=== PATIENT | female | born 2000 | race Caucasian/White ===

== ENCOUNTER 2020-03-06 20:38 | Inpatient (IN) | payer OTHER ==
[~2020-03-06] VITALS: Ht 165.1 cm; Wt 69.9 kg
[2020-03-06 20:51] VITALS: BP 121/80
[2020-03-06 21:12] LABS: CALCIUM 9.3 mg/dL (8.5-10.1); CREATININE 1.1 mg/dL (0.6-1.3); POTASSIUM 3.6 mmol/L (3.5-5.1)
[2020-03-06 21:16] LABS: ALBUMIN 4.3 g/dL (3.4-5.0); TOTAL BILIRUBIN 0.2 mg/dL (<0.1-1.0); TOTAL PROTEIN 7.8 g/dL (6.4-8.2)
[2020-03-06 21:28] LABS: ACETAMINOPHEN < 2 ug/mL (10-30); ALCOHOL < 10 mg/dL (<10)
[2020-03-06 21:32] LABS: HEMATOCRIT 41.1 % (37.0-47.0); HEMOGLOBIN 14.2 gm/dL (12.0-15.0); MCH 30.9 pg (26.0-34.0); MCHC 34.4 g/dL (28.0-37.0); MCV 89.9 fL (80.0-100.0); MPV 8.3 fl. (7.2-11.1); RBC 4.58 mil/uL (4.20-5.00); RDW-CV 13.2 % (10.5-14.5); WBC 14.7 thou/uL (4.0-11.0)
[2020-03-06 22:26] LABS: BE -8.5 mmol/L (-2 to +3); pH 7.453 (7.340-7.450)
[2020-03-06 22:28] LABS: PCO2 18.5 mmHg (35.0-45.0); PO2 131.7 mmHg (75.0-100.0)
--- NOTE | 2020-03-06 22:48 | NUR ---
POISON CONTROL CALLED, DR FOSTER UPDATED
[2020-03-06 23:23] LABS: URINE BILIRUBIN NEGATIVE (Negative); URINE BLOOD 2+ (Negative); URINE CLARITY CLEAR; URINE COLOR STRAW; URINE GLUCOSE-RANDOM NEGATIVE (Negative); URINE KETONES 1+ (Negative); URINE LEUKOCYTES NEGATIVE (Negative); URINE NITRITE NEGATIVE (Negative); URINE PROTEIN NEGATIVE (Negative); URINE SPECIFIC GRAVITY 1.025 (1.005-1.030); URINE UROBILINOGEN 0.2 E.U./dl (0.2-1.0)
[2020-03-06 23:42] LABS: INR 1.1; MAGNESIUM 2.1 mg/dL (1.8-2.4); PROTIME 11.6 Seconds (9.20-11.50)
[2020-03-07] VITALS (30 sets, daily range): BP systolic 86–117; BP diastolic 36–75
[2020-03-07 00:01] LABS: AMP/METHAMP Negative (Negative); BARBITURATES Negative (Negative); BENZODIAZEPINES Negative (Negative); COCAINE Negative (Negative); METHADONE Negative (Negative); OPIATES Negative (Negative); PCP Negative (Negative); THC Negative (Negative)
[2020-03-07 00:12] LABS: CASTS None Seen /LPF (None Seen); SQUAMOUS 4-10 Moderate /LPF (0-3)
[2020-03-07 00:13] LABS: BACTERIA 1-9 Few /HPF (None Seen); CRYSTALS None Seen /LPF (None Seen); URINE RBC 3-10 Few /HPF (0-2); URINE WBC 0-5 Rare /HPF (0-5)
--- NOTE | 2020-03-07 01:59 | NUR ---
UPDATED POISON CONTROL ON PATIENT STATUS AND RECENT LABS. NO NEW RECOMMENDATIONS AT THIS TIME.
[2020-03-07 05:15] LABS: HEMATOCRIT 41.6 % (37.0-47.0); HEMOGLOBIN 14.2 gm/dL (12.0-15.0); MCH 30.4 pg (26.0-34.0); MCHC 34.1 g/dL (28.0-37.0); MCV 89.1 fL (80.0-100.0); RBC 4.67 mil/uL (4.20-5.00); WBC 10.6 thou/uL (4.0-11.0)
[2020-03-07 05:21] LABS: ALBUMIN 3.7 g/dL (3.4-5.0); CALCIUM 8.1 mg/dL (8.5-10.1); CREATININE 0.9 mg/dL (0.6-1.3); POTASSIUM 3.4 mmol/L (3.5-5.1); TOTAL BILIRUBIN 0.3 mg/dL (<0.1-1.0); TOTAL PROTEIN 7.1 g/dL (6.4-8.2)
[2020-03-07 05:32] LABS: BE -5.3 mmol/L (-2 to +3); pH 7.599 (7.340-7.450)
[2020-03-07 05:35] LABS: PCO2 < 17.0 mmHg (35.0-45.0)
[2020-03-07 05:36] LABS: PO2 132.5 mmHg (75.0-100.0)
--- NOTE | 2020-03-07 06:00 | NUR ---
VITALS STABLE, AFEBRILE. PT DOES NOT COMPLAIN OF PAIN, NAUSEA. ONLY COMPLAINS OF BEING HOT. RESTING WELL IN BED. PT DOES HAVE SOME HEARING LOSS. REPORTS THIS IS NEW. OTHERWISE UNEVENTFUL NIGHT. REMAINS ON SUICIDE PRECAUTIONS, SITTER AT BEDSIDE. ABLE TO TURN SELF IN BED. CALL LIGHT WITHIN REACH. WILL CONTINUE MONITORING.
[2020-03-07 07:01] LABS: URINE BILIRUBIN NEGATIVE (Negative); URINE BLOOD 1+ (Negative); URINE CLARITY CLEAR; URINE COLOR YELLOW; URINE GLUCOSE-RANDOM TRACE (Negative); URINE KETONES 2+ (Negative); URINE LEUKOCYTES NEGATIVE (Negative); URINE NITRITE NEGATIVE (Negative); URINE PROTEIN NEGATIVE (Negative); URINE UROBILINOGEN 0.2 E.U./dl (0.2-1.0)
[2020-03-07 07:17] LABS: SQUAMOUS 4-10 Moderate /LPF (0-3); URINE WBC None Seen /HPF (0-5)
[2020-03-07 07:18] LABS: CASTS None Seen /LPF (None Seen); CRYSTALS None Seen /LPF (None Seen); MUCUS None Seen strn/LPF (None Seen); URINE RBC >20 Many /HPF (0-2)
--- NOTE | 2020-03-07 12:29 | NUR ---
ICU rounds: Here for SI, Pt took 90 aleve. CM spoke with Pt at bedside. Per Pt, she has been stressed, she is wanting her son's father to terminate his rights, Pt states that she feels like she is failing her son. CM processed through these feelings with Pt, tele psych consult to be completed today. MARVEL informed that per the tele psych consult, it will be determined if Pt will need inpt psych. Pt concerned about her job, MARVEL informed that can write a leave of absence note if needed. Pt resides at home with her grandparents and son. Independent and active. No DME. No hx of HH or SNF. Following for dispo needs.
--- NOTE | 2020-03-07 15:39 | EKG ---
[place] [address] ELECTROCARDIOGRAM REPORT Name: JOAQUIN GRACE Room: [address] [place] M.R.#: [id number] Admission: 03/06/20 Attend Phys: Lori Gibson Discharge: Date of : 89 Date of Service: 03/06/202048 Report #: [id number] THIS REPORT FOR: //name// [facility] ED Test Date: 2020-03-06 Test Time: 20:49:12 Pat Name: JOAQUIN GRACE Department: Room: [facility] Gender: F Belt Weaver: : 2000 Requested By: Corazon Rosario Order Number: [id number] MD: Jacky Bay Measurements Intervals [place] Rate: 89 P: 69 UT: 128 QRS: 48 QRSD: 88 T: 46 QT: 361 QTc: 440 Interpretive Statements Sinus rhythm RSR' in V1 or V2, probably normal variant No previous ECG available for comparison Electronically Signed On 03-07-2020 15:39:32 CDT by Jacky Bay [email or web address] <ELECTRONICALLY SIGNED> By: Jacky Bay MD, [facility] 03/07/20 1539 48 Jacky Bay MD, [facility] /EPI
--- NOTE | 2020-03-07 18:57 | NUR ---
DONNY SALAS RESTING IN BED. UP AD NOEL. AOX4. SALICYLATE AND POTASSIUM LEVELS REGULARLY WITH BICARB AND POTASSIUM INFUSIONS PER PRIMARY CARE AND POISON CONTROL. ROOM AIR. QI Rodarte COMPETED FOR PATIENT SAFETY.
[2020-03-07 22:16] LABS: CALCIUM 8.1 mg/dL (8.5-10.1); CREATININE 1.1 mg/dL (0.6-1.3)
[2020-03-07 22:21] LABS: POTASSIUM 2.9 mmol/L (3.5-5.1)
[2020-03-07 23:42] LABS: URINE BILIRUBIN NEGATIVE (Negative); URINE BLOOD NEGATIVE (Negative); URINE CLARITY CLEAR; URINE COLOR YELLOW; URINE GLUCOSE-RANDOM NEGATIVE (Negative); URINE KETONES NEGATIVE (Negative); URINE LEUKOCYTES-REFLEX NEGATIVE (Negative); URINE NITRITE-REFLEX NEGATIVE (Negative); URINE PROTEIN TRACE (Negative); URINE UROBILINOGEN 0.2 E.U./dl (0.2-1.0)
[2020-03-08] VITALS (17 sets, daily range): BP systolic 85–134; BP diastolic 42–60
[2020-03-08 04:00] LABS: ABSOLUTE LYMPHOCYTES 2.3 thou/uL (0.8-5.3); ABSOLUTE MONOCYTES 0.4 thou/uL (0.0-1.2); ABSOLUTE NEUTROPHILS 3.6 thou/uL (1.6-8.1); BASOPHILS 0.1 %; EOSINOPHILS 0.4 %; HEMATOCRIT 34.8 % (37.0-47.0); LYMPHOCYTES 36.5 %; MCHC 34.8 g/dL (28.0-37.0); MPV 8.7 fl. (7.2-11.1); NUCLEATED RBCS 0 /100WBC; PLATELET COUNT* 199 thou/uL (150-400); RBC 3.91 mil/uL (4.20-5.00); RDW-CV 13.3 % (10.5-14.5); WBC 6.2 thou/uL (4.0-11.0)
[2020-03-08 04:07] LABS: ALBUMIN 2.9 g/dL (3.4-5.0); APTT 25.9 Seconds (25.0-31.3); CREATININE 0.9 mg/dL (0.6-1.3); INR 1.3; MAGNESIUM 1.8 mg/dL (1.8-2.4); PHOSPHORUS* 2.2 mg/dL (2.5-4.9); PROTIME 13.6 Seconds (9.20-11.50); TOTAL BILIRUBIN 0.3 mg/dL (<0.1-1.0); TOTAL PROTEIN 5.4 g/dL (6.4-8.2)
[2020-03-08 04:11] LABS: HEMOGLOBIN 12.1 gm/dL (12.0-15.0)
--- NOTE | 2020-03-08 05:33 | NUR ---
ASSUMED PATIENT CARE AT 1900. ASSESSMENTS COMPLETED CHARTED. CARDIAC MONITORING IN PLACE. FALL PRECAUTIONS IN PLACE FOR PATIENT SAFETY. BED LOCKED AND IN LOWEST POSITION. CLWR.
[2020-03-08] MEDS ORDERED: NOHOMEMEDICATIONS (08:07)
--- NOTE | 2020-03-08 08:58 | NUR ---
Pt medically stable to dc to inpt psych per tele psych recommendations. CM updated Pt on dispo. CM faxed referrals to: [facility] p:[phone] f:[phone] [facility] p:[phone] f:[phone] [facility] p:[phone] f:[phone]
--- NOTE | 2020-03-08 17:36 | NUR ---
ASSUMED CARE OF PT AROUND 0730 THIS AM. REFER TO ASSESSMENT. PT WITH 1:1 OBSERVATION THIS SHIFT. PT REPORTS HEARING LOSS COMPLETELY RESOLVED THIS AM. LAB MONITORING IMPROVEMENT. IV SL THIS AM. PINEDA REMOVED. PT VOIDING WITHOUT DIFFICULTY. TELE PSYCH RECOMMENDED [facility] CASE MANAGEMENT AWARE THIS AM. PLACEMENT ACCEPTED AT [facility] IN [place] AT THIS TIME. ARRANGING TRANSPORTATION. DR. HASTINGS IS ACCEPTING PHYSICIAN. PT TO TRANSFER TO ROOM 402 B. WILL CALL ACCEPTING FACILITY FOR NURSE TO NURSE REPORT. NO OTHER CONCERNS AT THIS TIME. PT AWARE OF PLAN OF CARE. CLWR. WCTM.
== END 2020-03-08 18:20 | DRG 918 ==
LOC: M.ERS 20:38 → M.ICU 23:29 → M.TBA-ER 23:29 → M.ICU 03-07 01:02
PROVIDERS: Internal Medicine; Personal Emergency Response Attendant; ADMIT Internal Medicine; ATTEND Internal Medicine
DX: T39.092A Poisoning by salicylates, intentional self-harm, initial encounter (principal); R45.851 Suicidal ideations; H91.09 Ototoxic hearing loss, unspecified ear; E87.6 Hypokalemia; Y92.89 Other specified places as the place of occurrence of the external cause; Z72.89 Other problems related to lifestyle; Z03.818 Encounter for observation for suspected exposure to other biological agents ruled out

== ENCOUNTER 2020-04-28 16:12 | Emergency (ER) | payer OTHER ==
[~2020-04-28] VITALS: Ht 165.1 cm; Wt 65.8 kg
[~2020-04-28 16:12] MED LIST: NOHOMEMEDICATIONS
[2020-04-28] MEDS ORDERED: BACTRIM DS TAB1 EAC1 PO (16:27)
[2020-04-28] MEDS ORDERED: PHENAZOPYRIDIN200 M2 PO (16:27)
[2020-04-28 17:12] LABS: ABSOLUTE LYMPHOCYTES 1.1 thou/uL (0.8-5.3); ABSOLUTE MONOCYTES 0.4 thou/uL (0.0-1.2); ABSOLUTE NEUTROPHILS 3.2 thou/uL (1.6-8.1); BASOPHILS 0.3 %; EOSINOPHILS 0.9 %; HEMATOCRIT 40.5 % (37.0-47.0); HEMOGLOBIN 13.8 gm/dL (12.0-15.0); MCH 30.5 pg (26.0-34.0); MCHC 34.1 g/dL (28.0-37.0); MCV 89.7 fL (80.0-100.0); MONOCYTES 7.8 %; MPV 8.1 fl. (7.2-11.1); NUCLEATED RBCS 0 /100WBC; PLATELET COUNT* 208 thou/uL (150-400); RBC 4.52 mil/uL (4.20-5.00); RDW-CV 12.7 % (10.5-14.5); WBC 4.7 thou/uL (4.0-11.0)
[2020-04-28 17:20] LABS: CALCIUM 8.5 mg/dL (8.5-10.1); CREATININE 1.1 mg/dL (0.6-1.3); POTASSIUM 3.7 mmol/L (3.5-5.1)
[2020-04-28 17:24] LABS: ALBUMIN 3.6 g/dL (3.4-5.0); TOTAL BILIRUBIN 0.3 mg/dL (<0.1-1.0); TOTAL PROTEIN 6.8 g/dL (6.4-8.2)
[2020-04-28 17:39] LABS: URINE LEUKOCYTES-REFLEX ND (Negative); URINE NITRITE-REFLEX ND (Negative); URINE SPECIFIC GRAVITY ND (1.005-1.030); URINE UROBILINOGEN ND E.U./dl (0.2-1.0)
[2020-04-28 17:40] LABS: URINE CLARITY HAZY; URINE COLOR ORANGE
[2020-04-28 17:41] LABS: URINE BILIRUBIN ND (Negative); URINE GLUCOSE-RANDOM ND (Negative); URINE KETONES ND (Negative)
[2020-04-28 17:42] LABS: URINE BLOOD ND (Negative); URINE PROTEIN ND (Negative)
[2020-04-28 17:43] LABS: SQUAMOUS >10 Many /LPF (0-3)
[2020-04-28 17:44] LABS: BACTERIA-REFLEX 1-9 Few /HPF (None Seen); CASTS None Seen /LPF (None Seen); CRYSTALS None Seen /LPF (None Seen); MUCUS 0-3 Light strn/LPF (None Seen); URINE RBC 3-10 Few /HPF (0-2); URINE WBC-REFLEX 0-5 Rare /HPF (0-5)
[2020-04-28 18:32] VITALS: BP 119/53
== END 2020-04-28 18:33 | disposition home or self-care (01) ==
LOC: M.ERS 16:12
PROVIDERS: Family Medicine
DX: R10.33 Periumbilical pain (principal)